=== PATIENT | female | born 1990 | race Caucasian/White ===

== ENCOUNTER 2020-05-29 21:54 | Emergency (ER) | payer OTHER, MEDICAID, SELFPAY ==
[2020-05-29 22:05] VITALS: BP 147/89; PULSE 137; RESP 20; TEMP 37.1; O2SAT 100; BMI 26.6
--- NOTE | 2020-05-29 22:05 | DI.RAD.S_ITS ---
PROCEDURE: XR CHEST 1V INDICATIONS: chest pain, cough TECHNIQUE: One view of the chest was acquired. COMPARISON: None. FINDINGS: Surgical changes and devices: None. Lungs and pleura: Lungs are clear. No pleural effusions or pneumothorax. Mediastinum: Mediastinal contours appear normal. Heart size is normal. Bones and chest wall: No suspicious bony lesions. Convex right thoracic spine scoliosis. Overlying soft tissues appear unremarkable. IMPRESSION: No acute cardiopulmonary disease process. Dictated by: Mirian Parekh MD, PhD on 05/30/2020 at 8:28 Approved by: Mirian Parekh MD, PhD on 05/30/2020 at 8:29
--- NOTE | 2020-05-29 22:07 | ED.CHESTPAIN ---
HPI - Chest Pain General Chief Complaint: Shortness of Breath/Dyspnea Stated Complaint: LEFT SIDE PAIN Time Seen by Provider: 05/29/20 21:55 Source: patient and family Mode of arrival: Ambulatory Limitations: no limitations History of Present Illness HPI narrative: 30-year-old female daily smoker with history of anxiety presents with her 2 children in the chief complaint of sharp and stabbing left sided rib pain for few weeks if not months. She states it is worse when she takes a deep breath and at times she feels short of breath. She denies any fever, chills nor nausea or vomiting but does have frequent cough. She was seen and evaluated at another facility and told she likely had pleurisy after having a negative chest x-ray. She has no exertional symptoms. She's had no recent travel. She has no radiation of her symptoms. She states she is routinely tachycardic and has heart rates in the 130s to 140s Related Data Previous Rx's Medication Instructions Recorded ketorolac 10 mg PO Q6H PRN #14 tab 05/30/20 Allergies Allergy/AdvReac Type Severity Reaction Status Date / Time No Known Drug Allergies Allergy Verified 05/29/20 22:13 Review of Systems Constitutional Constitutional: Denies chills, Denies fatigue, Denies fever(s), Denies frequent falls, Denies lethargy and Denies weakness Eyes Eyes: Denies change in vision, Denies eye discharge, Denies irritation and Denies loss of vision ENT Ears, Nose, Mouth, and Throat: Denies change in voice, Denies dizziness, Denies neck pain, Denies sore throat and Denies throat swelling Cardiovascular Cardiovascular: Reports chest pain, Denies irregular heart rhythm, Denies lightheadedness, Denies palpitations, Denies dyspnea, Denies dyspnea on exertion and Denies orthopnea Respiratory Respiratory: Denies cough, Denies dyspnea, Denies dyspnea on exertion and Denies wheezing Gastrointestinal Gastrointestinal: Denies abdominal pain, Denies change in bowel habits, Denies diarrhea, Denies nausea and Denies vomiting Musculoskeletal Musculoskeletal: Denies neck pain and Denies numbness Integumentary/Breasts Skin/Breast: Denies pruritus, Denies erythema, Denies rash and Denies wounds Neurologic Neurologic: Denies behavioral changes, Denies confusion, Denies dizziness, Denies frequent falls, Denies loss of vision, Denies numbness and Denies weakness Psychiatric Psychiatric: Denies anxiety, Denies behavioral changes, Denies confusion, Denies depression, Denies homicidal ideation and Denies suicidal ideation Endocrine Endocrine: Denies fatigue, Denies flushing and Denies palpitations Hematologic/Lymphatic Hematologic/Lymphatic: Denies easy bruising Allergic/Immunologic Allergic/Immunologic: Denies urticaria, Denies throat swelling and Denies wheezing Patient History Social History Smoking Status: Current every day smoker Smoking Status: Current every day smoker tobacco type: cigarettes alcohol intake frequency: 0-2 drinks per day Substance Use Type: does not use Exam Narrative Exam Narrative: GENERAL: [30] year old patient appears stated age. Well-nourished, well-developed patient, in mild distress. Anxious HEAD: Atraumatic. Normocephalic. EYES: Pupils equal round and reactive. Extraocular motions intact. No scleral icterus. No injection or drainage. ENT: Nose without bleeding, purulent drainage. Throat without erythema, tonsillar hypertrophy or exudate. Airway patent. NECK: Trachea midline. Non tender CARDIOVASCULAR: Tachycardia and regular rhythm without murmurs, gallops, or rubs. RESPIRATORY: Clear to auscultation. Breath sounds equal bilaterally. No wheezes, rales, or rhonchi. GASTROINTESTINAL: Abdomen soft, non-tender, nondistended. EXTREMITIES: No edema or joint tenderness. BACK: Nontender without deformity or crepitance. No flank tenderness. NEURO: AOx3. SKIN: No rash or erythema of visible areas Initial Vital Signs Initial Vital Signs: Vital Signs Temperature 98.7 F 05/29/20 22:05 Pulse Rate 137 H 05/29/20 22:05 Respiratory Rate 20 05/29/20 22:05 Blood Pressure 147/89 H 05/29/20 22:05 Pulse Oximetry 100 05/29/20 22:05 Course Orders Ordered: ED Orders 05/29/20 22:05 XR chest 1V Stat 05/29/20 22:15 Basic Metabolic Panel Stat C-Reactive Protein Quant Stat Complete Blood Count AUTO DIFF Stat D Dimer Stat Ferritin Stat Magnesium Stat NT-proBNP (BNP-Adult 18+) Stat Procalcitonin Stat Troponin & CK Cardiac Panel Stat 05/29/20 22:36 EKG-12 Lead Stat 05/29/20 23:22 CT angio chest PE protocol Stat 05/29/20 23:25 Urine Culture Stat Urine Microscopic Stat Discontinued Medications Sodium Chloride (Normal Saline 0.9%) 1,000 mls @ 1,000 mls/hr IV BOLUS ONE Stop: 05/29/20 23:04 Last Infusion: 05/29/20 23:42 Dose: 0 mls/hr Documented by: Infusion: 05/29/20 23:17 Dose: 1,000 mls/hr Documented by: Admin: 05/29/20 22:34 Dose: 1,000 mls/hr Documented by: CTRPAULINO Vital Signs Vital signs: Vital Signs - 8 hr 05/29/20 22:05 05/29/20 22:42 05/29/20 23:00 Temperature 98.7 F Pulse Rate 137 H 107 H 117 H Respiratory Rate 20 Blood Pressure 147/89 H Pulse Oximetry 100 100 05/29/20 23:05 05/29/20 23:09 05/30/20 00:00 Temperature Pulse Rate 116 H 113 H 103 H Respiratory Rate 20 16 Blood Pressure 113/91 H 113/91 H 117/69 Pulse Oximetry 99 100 100 05/30/20 00:26 Temperature Pulse Rate 104 H Respiratory Rate Blood Pressure 127/65 Pulse Oximetry 100 MDM - Chest Pain Lab Data Result diagrams: 05/29/20 22:15 05/29/20 22:15 Labs: Lab Results 05/29/20 05/29/20 05/29/20 Range/Units 22:15 22:15 22:15 WBC 8.5 (4.5-11.0) X10^3/uL RBC 4.21 (4.0-5.2) X10^6/uL Hgb 13.3 (12.0-16.0) g/dL Hct 39.3 (36-46) % MCV 93.5 (80-100) fL MCH 31.5 (26-34) PG MCHC 33.7 (30-36) % RDW 13.7 (11.6-14.8) % Plt Count 319 (150-400) X10^3/uL Neut % (Auto) 66.1 (50-75) % Lymph % (Auto) 20.1 L (25-40) % Dade % (Auto) 13.1 (3-14) % Eos % (Auto) 0.4 L (2-4) % Baso % (Auto) 0.3 (0-2) % Neut # (Auto) 5600 (9235-9557) /uL Lymph # (Auto) 1700 (5912-6451) /uL Dade # (Auto) 1100 H (0-900) /uL Eos # (Auto) 0 (0-450) /uL Baso # (Auto) 0 (0-100) /uL D-Dimer 500 H (<230) ng/mL Sodium 138 (137-145) mmol/L Potassium 3.7 (3.4-5.1) mmol/L Chloride 103 (98-107) mmol/L Carbon Dioxide 27 (22-32) mmol/L BUN 12 (7-17) mg/dL Creatinine 0.97 (0.52-1.04) mg/dL Estimated GFR > 60.0 (>60) mL/min BUN/Creatinine Ratio 12.4 (6-22) Glucose 104 H (70-100) mg/dL Calcium 10.4 H (8.4-10.2) mg/dL Magnesium 2.1 (1.6-2.3) mg/dL Ferritin 17 (6-137) ng/mL Total Creatine Kinase 103 (30-135) U/L CK-MB (CK-2) 0.65 (<2.37) ng/mL CK-MB (CK-2) Rel Index 0.6 L (1.5-5.0) % Troponin I < 0.012 (0.01-0.034) ng/mL C-Reactive Protein 1.1 H (<1.0) mg/dL NT-Pro-B Natriuret Pep 33 (<125) pg/mL Procalcitonin (<0.5) ng/mL Urine RBC (0-5/HPF) Urine WBC (0-5/HPF) Ur Squamous Epith Cells (0-5/HPF) Urine Bacteria (None) Ur Culture Indicated? 05/29/20 05/29/20 Range/Units 22:15 23:25 WBC (4.5-11.0) X10^3/uL RBC (4.0-5.2) X10^6/uL Hgb (12.0-16.0) g/dL Hct (36-46) % MCV (80-100) fL MCH (26-34) PG MCHC (30-36) % RDW (11.6-14.8) % Plt Count (150-400) X10^3/uL Neut % (Auto) (50-75) % Lymph % (Auto) (25-40) % Dade % (Auto) (3-14) % Eos % (Auto) (2-4) % Baso % (Auto) (0-2) % Neut # (Auto) (3646-5059) /uL Lymph # (Auto) (7746-3251) /uL Dade # (Auto) (0-900) /uL Eos # (Auto) (0-450) /uL Baso # (Auto) (0-100) /uL D-Dimer (<230) ng/mL Sodium (137-145) mmol/L Potassium (3.4-5.1) mmol/L Chloride (98-107) mmol/L Carbon Dioxide (22-32) mmol/L BUN (7-17) mg/dL Creatinine (0.52-1.04) mg/dL Estimated GFR (>60) mL/min BUN/Creatinine Ratio (6-22) Glucose (70-100) mg/dL Calcium (8.4-10.2) mg/dL Magnesium (1.6-2.3) mg/dL Ferritin (6-137) ng/mL Total Creatine Kinase (30-135) U/L CK-MB (CK-2) (<2.37) ng/mL CK-MB (CK-2) Rel Index (1.5-5.0) % Troponin I (0.01-0.034) ng/mL C-Reactive Protein (<1.0) mg/dL NT-Pro-B Natriuret Pep (<125) pg/mL Procalcitonin < 0.05 (<0.5) ng/mL Urine RBC None seen (0-5/HPF) Urine WBC 0-1/hpf (0-5/HPF) Ur Squamous Epith Cells 0-1 /hpf (0-5/HPF) Urine Bacteria Few (2-10) H (None) Ur Culture Indicated? Specimen cultured Point of Care Testing Test Results Negative Urine Dip Bedside Urine Glucose Negative Bedside Urine Bilirubin - Negative Bedside Urine Ketone - Negative Urine Specific [place] 1.020 Bedside Urine Occult Blood - Negative Bedside Urine pH 6.0 Bedside Urine Protein - Negative Bedside Urine Urobilinogen - Negative Bedside Urine Nitrite - Negative Bedside Urine Leukocytes +/- [address] scan - chest: Radiologist's Impression: No PE. No acute cardiopulmonary process Discharge Plan Departure Patient Disposition: Home Clinical Impression: Atypical chest pain Instructions: DI for Atypical Chest Pain Activity Restrictions/Additional Instructions: *You have been diagnosed with [atypical chest pain ] *What to do: *Take medications as directed: Toradol electronically transmitted to [facility] in [place]. *Follow up with your primary care provider in 2-3 days, call for an appointment. Let them know you were seen in the Emergency Department and that we ask that you be seen in follow up *Return to ER if you should have any new, worsening or concerning symptoms Prescriptions: New ketorolac 10 mg tablet 10 mg PO Q6H PRN (Reason: pain) Qty: 14 RF: 0
[2020-05-29 22:23] LABS: Add Manual Diff / Slide Review NO; Basophils Absolute Auto 0 /uL (0-100); Basophils Percent Auto 0.3 % (0-2); Eosinophils Absolute Auto 0 /uL (0-450); Eosinophils Percent Auto 0.4 % (2-4); Hematocrit 39.3 % (36-46); Hemoglobin 13.3 g/dL (12.0-16.0); Lymphocytes Absolute Auto 1700 /uL (1100-4500); Lymphocytes Percent Auto 20.1 % (25-40); Mean Corpuscular HGB Conc 33.7 % (30-36); Mean Corpuscular Hemoglobin 31.5 PG (26-34); Mean Corpuscular Volume 93.5 fL (80-100); Monocytes Absolute Auto 1100 /uL (0-900); Monocytes Percent Auto 13.1 % (3-14); Neutrophils Absolute Auto 5600 /uL (1500-7000); Neutrophils Percent Auto 66.1 % (50-75); Platelet Count 319 X10^3/uL (150-400); Red Blood Cell Count 4.21 X10^6/uL (4.0-5.2); Red Cell Distribution Width 13.7 % (11.6-14.8); White Blood Cell Count 8.5 X10^3/uL (4.5-11.0)
[2020-05-29] MEDS: SODIUM CHLORIDE 0.9% 1,000 ML 1000 ML IV (22:34)
[2020-05-29 22:35] LABS: D Dimer 500 ng/mL (<230)
[2020-05-29 22:36] LABS: BUN Creatinine Ratio 12.4 (6-22); Blood Urea Nitrogen 12 mg/dL (7-17); Calcium 10.4 mg/dL (8.4-10.2); Carbon Dioxide 27 mmol/L (22-32); Chloride 103 mmol/L (98-107); Creatine Kinase 103 U/L (30-135); Estimated Glomerular Filt Rate > 60.0 mL/min (>60); Glucose 104 mg/dL (70-100); HEMOLYSIS < 15 (0-50); Magnesium 2.1 mg/dL (1.6-2.3); Potassium 3.7 mmol/L (3.4-5.1); Sodium 138 mmol/L (137-145)
[2020-05-29 22:42] VITALS: PULSE 107
[2020-05-29 22:49] LABS: NT-proBNP (BNP-Adult 18+) 33 pg/mL (<125); Troponin I < 0.012 ng/mL (0.01-0.034)
[2020-05-29 22:51] LABS: CKMB % Relative Index 0.6 % (1.5-5.0); Creatine Kinase MB 0.65 ng/mL (<2.37); Procalcitonin < 0.05 ng/mL (<0.5)
[2020-05-29 22:57] LABS: C-Reactive Protein Quant 1.1 mg/dL (<1.0)
[2020-05-29 23:00] VITALS: PULSE 117; O2SAT 100
[2020-05-29 23:05] VITALS: BP 113/91; PULSE 116; O2SAT 99
[2020-05-29 23:09] VITALS: BP 113/91; PULSE 113; RESP 20; O2SAT 100
[2020-05-29 23:12] LABS: Ferritin 17 ng/mL (6-137)
--- NOTE | 2020-05-29 23:22 | DI.CT.S_ITS ---
PROCEDURE: CT ANGIO CHEST PE PROTOCOL INDICATIONS: chest pain, Shortness of breath, tachycardia, elevated D dimer TECHNIQUE: After the administration of intravenous contrast, 2 mm thick sections acquired from the pulmonary apices to the posterior costophrenic angles. 3-dimensional maximum intensity projection (MIP) coronal and sagittal reformats were then acquired through the thorax. For radiation dose reduction, the following was used: automated exposure control, adjustment of mA and/or kV according to patient size. COMPARISON: None. FINDINGS: Image quality: Nondiagnostic study for pulmonary embolus secondary to poor contrast opacification of the pulmonary arteries. Pulmonary arteries: Pulmonary arteries are normal in size, and demonstrate no intraluminal filling defects to suggest central pulmonary embolism. Lungs and pleura: Atelectasis noted in the dependent portion of the lungs. 3 millimeter nodule noted in the right lower lobe (series 5, image 164). No pleural effusions or pneumothorax. Central and peripheral airways are patent. Mediastinum: Heart size is normal, without pericardial effusion. No mediastinal or hilar adenopathy. Thoracic aorta is normal in caliber and enhancement. Esophagus is normal in caliber, without hiatal hernia. Bones and chest wall: No suspicious bony lesions. Ribs and thoracic spine appear intact throughout. Thyroid gland is normal. No axillary or supraclavicular adenopathy. Abdomen: Visualized upper abdominal solid organs appear normal in the early arterial phase of enhancement. IMPRESSION: 1. Study is nondiagnostic for pulmonary embolus secondary to poor opacification of the pulmonary arteries. Repeat CT angiogram of the chest or nuclear medicine V/Q scan recommended if clinically indicated. 2. No lung consolidation or pleural effusions. 3. 3 millimeter right lower lobe nodule. Recommend follow-up imaging based on criteria outlined below. Fleischner Society criteria for SOLID lung nodule followup. Nodule size (mm)Low-risk patientHigh-risk patient<6 (single or multiple)No routine followup.Optional CT at 12 months. 6-8 (single or multiple)CT at 6-12 months, then optional CT at 18-24 mo.CT at 6-12 months, then CT at 18-24 months. >8 (single)CT at 3 months, PET-CT, or biopsy. Same as for low-risk pts. >8 (multiple)CT at 3-6 months, then optional CT at 18-24 mo.CT at 3-6 months, then CT at 18-24 months. Recommendations do not apply to lung cancer screening, patients with immunosuppression, or patients with known primary cancer. Dictated by: Mirian Parekh MD, PhD on 05/30/2020 at 7:06 Approved by: Mirian Parekh MD, PhD on 05/30/2020 at 7:12
[2020-05-29 23:33] LABS: RBC Urine None Seen (0-5/HPF)
[2020-05-29 23:44] LABS: Bacteria Urine Few (2-10); Culture Indicated Urine Specimen Cultured; Squamous Epithelial Cell Urine 0-1 /HPF (0-5/HPF); WBC Urine 0-1/HPF (0-5/HPF)
[2020-05-30] VITALS: BP 117/69; PULSE 103; RESP 16; O2SAT 100
[2020-05-30 00:26] VITALS: BP 127/65; PULSE 104; O2SAT 100
[2020-05-30 00:41] VITALS: BP 127/65; PULSE 100; RESP 18; O2SAT 98
== END 2020-05-30 00:35 | disposition home or self-care (01) ==
PROVIDERS: Emergency Provider Emergency Medicine
DX: R07.89 Other chest pain (principal); R06.02 Shortness of breath
CPT/HCPCS: 36415; 71045; 71275; 80048; 81003; 81015; 81025; 82550; 82553; 82728; 83735; 83880; 84145; 84484; 85025; 85379; 86140; 87086; 93005; 93010; 96360; 99284; Q9967

== ENCOUNTER 2021-03-22 07:50 | Emergency (ER) | payer OTHER, MEDICAID, SELFPAY ==
[2021-03-22 07:58] VITALS: BP 135/90; PULSE 76; RESP 20; TEMP 36.4; O2SAT 100; BMI 25.7
[2021-03-22 08:00] VITALS: BP 120/81; PULSE 85; RESP 20; O2SAT 100
--- NOTE | 2021-03-22 08:03 | ED.GENADULT ---
HPI - General Adult General Chief complaint: Shortness of Breath/Dyspnea Stated complaint: pleurisy Time Seen by Provider: 03/22/21 07:52 Source: patient Mode of arrival: Ambulatory Limitations: no limitations History of Present Illness HPI narrative: Patient is a 30-year-old female who has had several episodes of was diagnosis pleurisy over the past year here for evaluation of right-sided chest discomfort. She states that this morning she was getting ready for work when she had a fairly sudden onset of right-sided lower rib pain. She states it was so much that it took her to her knees. Since that time it has continued. Somewhat unsure is exactly what she was doing at the time but she did not have any trauma to the area. She is afebrile. Related Data Previous Rx's Medication Instructions Recorded ketorolac 10 mg PO Q6H PRN #14 tab 05/30/20 Allergies Allergy/AdvReac Type Severity Reaction Status Date / Time No Known Drug Allergies Allergy Verified 05/29/20 22:13 Review of Systems Constitutional Constitutional: Denies headache(s) Eyes Eyes: Denies blurry vision ENT Ears, Nose, Mouth, and Throat: Denies headache(s) and Denies sore throat Cardiovascular Cardiovascular: Reports chest pain Respiratory Respiratory: Reports pain on inspiration Gastrointestinal Gastrointestinal: Reports abdominal pain, Denies constipation, Denies diarrhea, Denies nausea and Denies vomiting Genitourinary Genitourinary: Denies dysuria Genitourinary: Denies dysuria Musculoskeletal Musculoskeletal: Reports system reviewed and no additional complaints, except as documented Integumentary/Breasts Skin/Breast: Reports system reviewed and no additional complaints, except as documented Neurologic Neurologic: Denies headache(s) Hematologic/Lymphatic On Anticoagulants: No Allergic/Immunologic Allergic/Immunologic: Reports system reviewed and no additional complaints, except as documented Patient History Medical History Pleurisy Social History Smoking Status: Current every day smoker Smoking Status: Current every day smoker tobacco type: cigarettes alcohol intake frequency: 0-2 drinks per day Substance Use Type: does not use Exam Initial Vital Signs Initial Vital Signs: Vital Signs Temperature 97.5 F L 03/22/21 07:58 Pulse Rate 76 05/06/21 07:58 Respiratory Rate 20 03/22/21 07:58 Blood Pressure 135/90 03/22/21 07:58 Pulse Oximetry 100 03/22/21 07:58 Const General: cooperative Limitations: mental status not altered HENMT Head: normal to inspection and normocephalic Chest Chest: No crepitus and tenderness (Right-sided lower ribs anterior lateral) Resp Effort & Inspection: normal respiratory effort Auscultation: clear to auscultation bilaterally Back/Spine/Pelvis Back: No CVA tenderness Skin Rashes: no rashes Neuro General: patient alert and patient awake Extrem General: normal to inspection and capillary refill normal Psych Appearance: grossly normal and well kempt Course Orders Ordered: ED Orders 03/22/21 08:02 XR chest 1V Stat Vital Signs Vital signs: Vital Signs - 8 hr 03/22/21 07:58 Temperature 97.5 F L Pulse Rate 76 Respiratory Rate 20 Blood Pressure 135/90 Pulse Oximetry 100 Medical Decision Making Imaging Data Chest x-ray: Radiologist's Impression: [address] [id number] ReportSigned Patient: Beth Porter LMR#: [id number]: [id number]:[id number]/Sex: 30 / FDate of Service: 03/22/21Loc: EDAccession Number: [id number] Procedure: XR chest 1V Ordering Provider: Prosper Regan D.O. PROCEDURE: XR CHEST 1V INDICATIONS: Right-sided lower rib pain TECHNIQUE: One view of the chest was acquired. COMPARISON: [facility], XR CHEST 1V, 05/29/2020, 22:12. FINDINGS: Surgical changes and devices: None. Lungs and pleura: Lungs are clear. No pleural effusions or pneumothorax. Mediastinum: Mediastinal contours appear normal. Heart size is normal. Bones and chest wall: No suspicious bony lesions. Overlying soft tissues appear unremarkable. IMPRESSION: No rib fracture found or other abnormality at the right lower chest. Old left-sided rib fractures noted at the mid chest, laterally. These appear to have been previously present in May of 2020 also. Dictated by: Brady Johnson M.D. on 03/22/2021 at 8:32 Approved by: Brady Johnson M.D. on 03/22/2021 at 8:33 MDM Narrative Medical decision making narrative: X-ray does not given a definitive diagnosis of her symptoms however does show that she does not have pneumonia nor collapsed lung or rib fracture. She reports no change in the skin over the area. We did discuss pleurisy and potential causes. We discussed treatment to include Tylenol/ibuprofen and giving the area time to heal. Discharge Plan Departure Patient Disposition: Home Clinical Impression: Chest pain Instructions: DI for Pleurisy Activity Restrictions/Additional Instructions: Recommend that you continue with the Tylenol/ibuprofen for any discomfort. Unfortunately there is not a good treatment for the symptoms you are having other than the anti-inflammatories and giving the area time to feel better. Contact your primary provider for follow-up. Return to the emergency department for any new or worsening symptoms. Prescriptions: No Action ketorolac 10 mg tablet 10 mg PO Q6H PRN (Reason: pain) Qty: 14 RF: 0 Referrals: Rosina Gross [Primary Care Provider] -
[2021-03-22 08:48] VITALS: BP 105/68; PULSE 73; RESP 18; O2SAT 97
== END 2021-03-22 08:51 | disposition home or self-care (01) ==
PROVIDERS: Emergency Provider Emergency Medicine; PCP Physician Assistant
DX: R07.9 Chest pain, unspecified (principal)
CPT/HCPCS: 71045; 99281; 99283